=== PATIENT | male | born 1950 | race African-American/Black ===

== ENCOUNTER 2018-01-23 07:06 | Outpatient (CLI) | payer OTHER ==
[2018-01-23] MEDS ORDERED: LIDOCAINE 2% 20 ML VIAL. (07:41)
[2018-01-23] MEDS ORDERED: IODIXANOL 320 MG/ML 100 ML VIAL. ×3 (07:41→09:21)
[2018-01-23 07:42] LABS: HEMATOCRIT 40.4 % (39.0-53.0); HEMOGLOBIN 13.1 g/dL (13.0-17.5); MEAN CORPUSCULAR HEMOGLOBIN 25 pg (25-35); MEAN CORPUSCULAR HGB CONC 32 g/dL (31-37); MEAN CORPUSCULAR VOLUME 77 fL (79-100); PLATELET COUNT 248 x10^3/uL (140-400); RED BLOOD COUNT 5.25 x10^6/uL (4.30-5.70); RED CELL DISTRIBUTION WIDTH 14.6 % (11.5-14.5); WHITE BLOOD COUNT 8.4 x10^3/uL (4.0-11.0)
[2018-01-23 07:55] LABS: INR 1.2 (0.8-1.1); PROTHROMBIN TIME PATIENT 14.2 SEC (11.7-14.0)
[2018-01-23 08:01] LABS: ANION GAP 10 (6-14); BLOOD UREA NITROGEN 17 mg/dL (8-26); CALCIUM 9.4 mg/dL (8.5-10.1); CARBON DIOXIDE 27 mmol/L (21-32); CHLORIDE 108 mmol/L (98-107); GFR 89.6; GLUCOSE 104 mg/dL (70-99); POTASSIUM 3.2 mmol/L (3.5-5.1); SODIUM 145 mmol/L (136-145)
[2018-01-23] MEDS ORDERED: MIDAZOLAM HCL/PF 2 MG/2 ML VIAL. (08:28)
[2018-01-23] MEDS ORDERED: fentaNYL PF VIAL 100 MCG/2 ML VIAL (08:28)
[2018-01-23] MEDS ORDERED: HEPARIN for IV BOLUS 10,000 UNIT/10 ML VIAL. (08:28)
[2018-01-23] MEDS: IV NORMAL SALINE 1000ML BAG 1,000 ML IV (08:30)
[2018-01-23] MEDS ORDERED: NITROGLYCERIN OINT 1 GM PACKET. (08:36)
[2018-01-23] MEDS: IODIXANOL 320 MG/ML 100 ML VIAL. IART (08:45)
[2018-01-23] MEDS: NITROGLYCERIN OINT 1 GM PACKET. TP (08:45)
[2018-01-23] MEDS: HEPARIN for IV BOLUS 10,000 UNIT/10 ML VIAL. IV (08:45)
[2018-01-23] MEDS ORDERED: CONTRAST GIVEN MC (09:00)
[2018-01-23] MEDS: MIDAZOLAM HCL/PF 2 MG/2 ML VIAL. IV (09:52)
[2018-01-23] MEDS: LIDOCAINE 2% 20 ML VIAL. IJ (09:55)
[2018-01-23] MEDS: fentaNYL PF VIAL 100 MCG/2 ML VIAL IV (09:55)
[2018-01-23] MEDS ORDERED: IV NORMAL SALINE 1000ML BAG 1,000 ML IV (10:32)
[2018-01-23] MEDS ORDERED: MAGNESIUM HYDROXIDE 2,400 MG/30 ML ORAL.SUSP. PO (10:45)
[2018-01-23] MEDS ORDERED: fentaNYL PF VIAL 100 MCG/2 ML VIAL IV ×2 (10:45)
[2018-01-23] MEDS ORDERED: BISACODYL 10 MG SUPP.RECT. PR (10:45)
[2018-01-23] MEDS ORDERED: MIDAZOLAM HCL/PF 2 MG/2 ML VIAL. IV (10:45)
[2018-01-23] MEDS ORDERED: oxyCODONE/APAP 5/325 1 TAB TABLET PO ×2 (10:45)
[2018-01-23] MEDS ORDERED: 0.9 % SODIUM CHLORIDE 10 ML DISP.SYRIN. IV (10:45)
[2018-01-23] MEDS ORDERED: ATROPINE 0.5 MG/5 ML DISP.SYRINGE. IV (10:45)
[2018-01-23] MEDS ORDERED: LACTULOSE 20 GM/30 ML SOLUTION. PO (10:45)
[2018-01-23] MEDS ORDERED: ACETAMINOPHEN 325 MG TABLET. PO (10:45)
[2018-01-23] MEDS ORDERED: NITROGLYCERIN SUBLINGUAL 0.4 MG BOTTLE OF 25. SL (10:45)
[2018-01-23] MEDS: hydrALAZINE 25 MG TABLET PO (12:02)
[2018-01-23] MEDS: LISINOPRIL 20 MG TABLET PO (12:03)
[2018-01-23] MEDS ORDERED: amLODIPine BESYLATE 10 MG TABLET (14:16)
[2018-01-23] MEDS: amLODIPine BESYLATE 10 MG TABLET PO (14:21)
== END 2018-01-23 14:35 | disposition home or self-care (01) ==
LOC: CCL 07:06
DX: I73.89 Other specified peripheral vascular diseases (principal); I10 Essential (primary) hypertension; E78.00 Pure hypercholesterolemia, unspecified; I26.99 Other pulmonary embolism without acute cor pulmonale; F17.200 Nicotine dependence, unspecified, uncomplicated; B19.20 Unspecified viral hepatitis C without hepatic coma; Z79.01 Long term (current) use of anticoagulants; Z79.899 Other long term (current) drug therapy
CPT/HCPCS: 36246; 36415; 75630; 75716; 80048; 85027; 85610; 99152; 99153; C1769; C1771; C1892; G0269; J1644; J2250; J3010; J7030